=== PATIENT | male | born 1970 | race African-American/Black ===

== ENCOUNTER 2020-05-18 19:42 | Emergency (ER) | payer BC ==
[~2020-05-18] VITALS: Ht 182.9 cm; Wt 97.5 kg
[2020-05-18 22:11] VITALS: BP 170/90
--- NOTE | 2020-05-19 07:07 | EKG ---
[facility] [place] [address] ELECTROCARDIOGRAM REPORT Name: MEHNAZSEUN Room #: DEP [facility]#: [id number] Admission: 05/18/20 Attend Phys: Discharge: 05/18/20 Date of : 68 Report #: [id number] THIS REPORT FOR: cc: ROSEANNA - Radha family physician/PCP ROSEANNA - Radha family physician/PCP Justen French MD [facility] ~ THIS REPORT FOR: //name// [facility] ED Test Date: 2020-05-18 Test Time: 20:23:00 Pat Name: SEUN DARBY Department: Room: Gender: Manager Car: [facility] : 1970 Requested By: Sagar Zendejas Order Number: [id number] MD: Justen French Measurements Intervals Idamay Rate: 89 P: 44 ID: 140 QRS: 66 QRSD: 102 T: 60 QT: 382 QTc: 465 Interpretive Statements Sinus rhythm Baseline wander in lead(s) I,III,aVL No previous ECG available for comparison Electronically Signed On 05-19-2020 7:07:21 [employer]NA[employer] DESIGN[employer] by Justen French [email or web address] <ELECTRONICALLY SIGNED> By: Justen French MD, FACC [id number] Justen French MD, [facility] /EPI
== END 2020-05-18 22:08 | disposition home or self-care (01) ==
LOC: ER 19:42
DX: K59.00 Constipation, unspecified (principal); F17.210 Nicotine dependence, cigarettes, uncomplicated